=== PATIENT | female | born 1940 | race Caucasian/White ===

== ENCOUNTER → 2017-10-09 | Outpatient (CLI) | payer MEDICARE ==
[~2017-10-09] MED LIST: CALC-1038 PO; FISH1CAP27 PO; LACT1CAP72 PO; METO-391 PO; MULT-1086 PO; OMEP20CA10 PO; TIOT18CA3 IH
== END | disposition home or self-care (01) ==
LOC: RAH 13:03
PROVIDERS: ATTEND Physical Medicine & Rehabilitation
DX: N13.30 Unspecified hydronephrosis (principal)
CPT/HCPCS: 76770